=== PATIENT | female | born 1995 | race Caucasian/White ===

== ENCOUNTER → 2017-03-01 | Outpatient (CLI) | payer MEDICAID ==
[~2017-03-01] MED LIST: AMOXICILLIN 50500 MG PO; BACTRIM DS 8001 TAB PO; CLOTRIMAZOLE VG; DICLEGIS1 TCP PO; ELIMITE5% EX; FLAGYL500 MG PO; MOTRIN 400MG.400 MG PO; NUVARING1 ICR VG; PERCOCET 5/3251 EACH PO; PHENERGAN 25MG.25 M1 PO; PHENTERMINE H PO; PRENATAL PLUS1 TA1 PO; PRENATAL VITAMI1 TA7 PO; PRENATAL1 TA4 PO; PROVENTIL0.09 MG/A1 IH; TESSALON PERLE200 MG PO; TYLENOL COLD &1 TAB PO; ULTRAM50 MG PO; ZOLOFT 50MG TAB50 MG PO; ZYRTEC-D 12HR 51 TER PO
[2017-03-01 15:23] LABS: HEMOGLOBIN 12.6 g/dL (12.2-16.2); LYMPH # 2.4 K/mm3 (0.7-4.5); LYMPH % 26.2 % (10-50.0)
[2017-03-01 18:56] LABS: ABO BLOOD TYPE A; RH BLOOD TYPE POSITIVE
[2017-03-03 06:37] LABS: HIV Screen 4th Generation wRfx Non Reactive (Non Reactive)
[2017-03-03 08:42] LABS: Rapid Plasma Reagin, Quant Non Reactive (NonRea<1:1); Rubella Antibodies, IgG 4.11 index (Immune >0.99)
[2017-03-03 09:37] LABS: HBsAg Screen Negative (Negative); Hep C Virus Ab <0.1 (0.0-0.9)
== END ==
LOC: RAD 14:42
PROVIDERS: Nurse Practitioner Obstetrics & Gynecology
DX: Z34.80 Encounter for supervision of other normal pregnancy, unspecified trimester (principal)
CPT/HCPCS: G0432

== ENCOUNTER → 2017-03-08 | Outpatient (CLI) | payer MEDICAID ==
--- NOTE | 2017-03-08 16:20 | RADIOLOGY REPORT PS360 ---
US TRANSVAGINAL PREG HISTORY: OB US FOR DATES ORDERING PHYSICIAN: Davide Yates MD PATIENT AGE: 21 years COMPARISON: None FINDINGS: An intrauterine gestational sac is present with a pole with a crown-rump length of 0.8cm correlating to gestational age of 6 weeks 6 days. heart tones are present with an FHR of 126 bpm's. Yolk sac is noted. Adnexa: 2.7 cm right ovarian cyst. IMPRESSION: Single live injury gestation at 6 weeks 6 days. 2.7 cm right corpus luteum cyst
== END ==
LOC: RAD 14:29
DX: O26.841 Uterine size-date discrepancy, first trimester (principal)